=== PATIENT | male | born 1955 | race Caucasian/White ===

== ENCOUNTER 2019-05-13 05:04 | Inpatient (IN) | payer MEDICARE, OTHER ==
[2019-05-13] VITALS (13 sets, daily range): BP systolic 105–166; BP diastolic 41–77
[~2019-05-13] VITALS: Ht 176.5 cm; Wt 90.9 kg
[~2019-05-13 05:04] MED LIST: LIDOcaine 2% (20 mg/ml) 5ml cardiac syringe ONE; albumin (human) 25% 100 ML IV solution IV ONE; aminocaproic acid 250 MG/1 ML inj. ONE; calcium chloride 100 MG/1 ML inj IV ONE; heparin 1,000 units/ml 10ml inj ONE; heparin 10,000 units/1 ML INJ ONE; magnesium sulf 1 GM/2 ML ONE; methylPREDNISolone sod. succ. 500mg inj ONE; papaverine 30 mg/ml 2ml inj. ONE; phenylephrine 10mg/ml inj. ONE; potassium acetate 2 mEq/1ml inj. IV ONE; sodium bicarbonate (8.4%) 1 mEq/ml syringe ONE
[2019-05-13] MEDS ORDERED: LIDOcaine/PRILOcaine 5gm cream TP ONE (05:35)
[2019-05-13] MEDS ORDERED: diphenhydrAMINE 25mg capsule PO PRN ×2 (05:35→07:30)
[2019-05-13] MEDS ORDERED: LORazepam 0.5 MG tablet PO PRN (05:35)
[2019-05-13] MEDS ORDERED: FLO0.4C PO (05:42)
[2019-05-13] MEDS ORDERED: ASPI-611 PO (05:42)
[2019-05-13] MEDS ORDERED: OMEGA 3 PO (05:42)
[2019-05-13] MEDS ORDERED: MULT1CAP34 PO (05:42)
[2019-05-13] MEDS ORDERED: ATOR40TA PO (05:42)
[2019-05-13 05:43] LABS: BASOPHILS # (AUTO) 0.1 X10'3 (0-0.2); BASOPHILS % (AUTO) 1.4 % (0-1); EOSINOPHILS # (AUTO) 0.3 X10'3 (0-0.9); HEMATOCRIT 42.4 % (42.0-52.0); HEMOGLOBIN 14.7 g/dl (14.0-17.9); LYMPHOCYTES # (AUTO) 2.9 X10'3 (1.1-4.8); LYMPHOCYTES % (AUTO) 29.4 % (21-51); MEAN CORPUSCULAR HEMOGLOBIN 32.2 PG (27.0-31.0); MEAN CORPUSCULAR HGB CONC 34.7 g/dL (33.0-36.5); MEAN CORPUSCULAR VOLUME 92.8 FL (78-98); MEAN PLATELET VOLUME 9.3 FL (7.4-10.4); MONOCYTES # (AUTO) 1.2 X10'3 (0-0.9); MONOCYTES % (AUTO) 12.3 % (2-12); NEUTROPHILS # (AUTO) 5.3 X10'3 (1.8-7.7); NEUTROPHILS % (AUTO) 53.9 % (42-75); PLATELET COUNT 193 X10'3 (140-440); RED BLOOD COUNT 4.57 X10'6 (4.70-6.10); RED CELL DISTRIBUTION WIDTH 12.9 % (11.5-14.5); WHITE BLOOD COUNT 9.9 X10'3 (4.5-11.0)
[2019-05-13] MEDS: normal saline 1,000 ML IV SCH (05:46)
[2019-05-13 05:49] LABS: ALBUMIN 3.9 G/DL (3.4-5.0); ANION GAP 9 (8-16); BLOOD UREA NITROGEN 15 MG/DL (7-18); CHLORIDE 108 MMOL/L (99-107); CREATININE 1.07 MG/DL (0.60-1.10); GLUCOSE 111 MG/DL (70-104); POTASSIUM 4.1 MMOL/L (3.5-5.1); SODIUM 141 MMOL/L (135-145); TOTAL CARBON DIOXIDE 23.7 MMOL/L (24-32); eGFR 69 ML/MIN
[2019-05-13 05:52] LABS: PARTIAL THROMBOPLASTIN TIME 26 SECONDS (22-32)
[2019-05-13] MEDS ORDERED: verapamil 2.5 mg/ml inj IV ONE (06:05)
[2019-05-13] MEDS ORDERED: nitroGLYCERIN-Tridil 50MG/D5W 250 ML IV ONE (06:05)
[2019-05-13] MEDS ORDERED: midazolam 2 mg/2 ml injection ONE (06:05)
[2019-05-13] MEDS ORDERED: fentaNYL/PF 50MCG/1 ML 2ML syringe ONE (06:06)
[2019-05-13] MEDS ORDERED: heparin 1,000unit/ml 10ml vial 10 ML ONE (06:06)
[2019-05-13] MEDS ORDERED: LIDOcaine 1% (10mg/ml)w/preservative injection 20ml MDV ONE (06:06)
[2019-05-13] MEDS ORDERED: iohexol 350MG/ML 100ml bottle IV ONE (06:06)
[2019-05-13] MEDS ORDERED: HYDROmorphone 1 mg/ml syringe ONE (06:33)
[2019-05-13] MEDS ORDERED: insulin regular, human 100 UNIT in normal saline 100ml IV soln 100 ML IV SCH ×2 (07:29)
[2019-05-13] MEDS ORDERED: potassium Cl 20mEq/100mL bag 100 ML IV PRN (07:30)
[2019-05-13] MEDS ORDERED: MALTODEXTRIN/FRUCTOSE 0.68 KCAL/ML LIQUID 296ML BOTTLE PO ONE (07:30)
[2019-05-13] MEDS ORDERED: potassium Cl 20 mEq SR tablet PO PRN (07:30)
[2019-05-13] MEDS ORDERED: magnesium 2GM in 50ml NS 50 ML IV PRN (07:30)
[2019-05-13] MEDS ORDERED: MESSAGE TO NURSING PO ONE ×5 (07:30→10:00)
[2019-05-13] MEDS ORDERED: magnesium 4gm in 100ml NS 100 ML IV PRN (07:30)
[2019-05-13] MEDS ORDERED: cefazolin/dext.iso 2gm/50ml 50 ML IV ONE (07:30)
[2019-05-13] MEDS ORDERED: dextrose 50%-water 50ml dispensing syringe IV PRN (07:30)
[2019-05-13] MEDS ORDERED: HYDROcodone/acetaminophen 5mg/325mg tablet PO PRN ×3 (07:30→08:30)
[2019-05-13] MEDS ORDERED: ondansetron/PF 4mg/2ml inj IV PRN ×3 (07:30→08:30)
[2019-05-13] MEDS ORDERED: gabapentin 400mg capsule PO ONE (07:30)
[2019-05-13] MEDS ORDERED: insulin glargine (Lantus) pen - multi-dose SQ PRN (07:30)
[2019-05-13] MEDS ORDERED: vancomycin/NS 1 GM ADD-VANTAGE 250 ML IV ONE (07:30)
[2019-05-13] MEDS ORDERED: proCHLORperazine 10 MG/2 ml inj IV PRN ×2 (07:55→08:35)
[2019-05-13] MEDS ORDERED: OXAZEpam 15mg capsule PO PRN ×2 (07:55→08:35)
[2019-05-13] MEDS ORDERED: HYDROcodone/acetaminophen 10/325mg tab PO PRN ×2 (07:55→08:35)
[2019-05-13 09:04] LABS: MAGNESIUM 2.2 MG/DL (1.5-2.4)
[2019-05-13 09:14] LABS: HEMOGLOBIN A1C 6.5 % (4.5-6.2)
[2019-05-13 10:08] LABS: HEMATOCRIT 42.1 % (42.0-52.0); HEMOGLOBIN 14.5 g/dl (14.0-17.9); MEAN CORPUSCULAR HEMOGLOBIN 31.7 PG (27.0-31.0); MEAN CORPUSCULAR HGB CONC 34.3 g/dL (33.0-36.5); MEAN CORPUSCULAR VOLUME 92.2 FL (78-98); MEAN PLATELET VOLUME 9.4 FL (7.4-10.4); PLATELET COUNT 187 X10'3 (140-440); RED BLOOD COUNT 4.57 X10'6 (4.70-6.10); RED CELL DISTRIBUTION WIDTH 13.3 % (11.5-14.5); WHITE BLOOD COUNT 9.4 X10'3 (4.5-11.0)
[2019-05-13 10:14] LABS: PARTIAL THROMBOPLASTIN TIME 34 SECONDS (22-32)
[2019-05-13 10:20] LABS: ALBUMIN 3.6 G/DL (3.4-5.0); ANION GAP 10 (8-16); BLOOD UREA NITROGEN 13 MG/DL (7-18); BUN/CREATININE RATIO 12.5 (5.4-32.0); CALCIUM 8.6 MG/DL (8.5-10.1); CHLORIDE 108 MMOL/L (99-107); CHOL/HDL RATIO 2.8 (0.00-4.99); CHOLESTEROL 108 MG/DL (0-200); CREATININE 1.04 MG/DL (0.60-1.10); GLUCOSE 160 MG/DL (70-104); HDL CHOLESTEROL 38 MG/DL (35-60); LDL CHOLESTEROL 58 MG/DL (50-100); SODIUM 142 MMOL/L (135-145); TOTAL CARBON DIOXIDE 23.7 MMOL/L (24-32); TRIGLYCERIDES 112 MG/DL (20-135); eGFR 72 ML/MIN
[2019-05-13 14:31] LABS: ABG BASE EXCESS 0.2 mmol/L (-2.0-3.0); ABG HCO3 25.1 mmol/L (22.0-26.0); ABG OXYGEN SATURATION 92.6 % (95-98); ABG PCO2 (T) 41.7 mmHg (35.0-45.0); ABG PH (T) 7.397 (7.350-7.450); ABG PO2 (T) 63.5 mmHg (83-108); ALLEN'S TEST Positive; FCOHb 0.8 % (0.5-1.5); FMetHb 0.3 % (0.3-1.12); FO2Hb 91.6 % (94-100); TOTAL HEMOGLOBIN 14.4 G/dl (14.0-17.9)
--- NOTE | 2019-05-13 15:40 | NUR ---
RECEIVED PATIENT AND REPORT FROM SHORT STAY.PATIENT PLACED IN ROOM 308. PATIENT AWAKE ALERT AND ORIENTED. RT WRIST WITH VASC COMPRESSION BAND INTACT, RADIAL PULSE POSITIVE PER PALPATION, CER CHECK GOOD.REMOVED 2 ML OF AIR.NO C/O CALL LIGHT IN REACH. Addendum: 05/13/19 at 1853 by Liset Tierney RN Amended: Links added.
--- NOTE | 2019-05-13 18:34 | NUR ---
Patient in room MED 308. I have received report from Karen KUMAR and had the opportunity to ask questions and assume patient care.
[2019-05-13] MEDS: mupirocin 2% ointment 22GM NS SCH (20:00)
--- NOTE | 2019-05-13 20:00 | NUR ---
PATIENT HAS BEEN NOTED TO HAVE A HEART RATE LOW 43, ASYMPTOMATIC
--- NOTE | 2019-05-13 22:00 | NUR ---
PATIENT C/O HEADACHE AFTER RECEIVING NORCO 10/325 FOR 710 BACK PAIN, WILL SUGGEST TO DAY SHIFT RN TO USE ALTERNATIVE PAIN MEDICINE.
--- NOTE | 2019-05-14 00:40 | NUR ---
PATIENTS HEART RATE DROPPED TO 38, ASYMPTOMATIC, SLEEPING.
[2019-05-14 02:00] VITALS: BP 136/78
[2019-05-14 03:54] LABS: BASOPHILS # (AUTO) 0.1 X10'3 (0-0.2); BASOPHILS % (AUTO) 0.9 % (0-1); EOSINOPHILS # (AUTO) 0.3 X10'3 (0-0.9); HEMATOCRIT 40.2 % (42.0-52.0); HEMOGLOBIN 13.9 g/dl (14.0-17.9); LYMPHOCYTES # (AUTO) 1.9 X10'3 (1.1-4.8); LYMPHOCYTES % (AUTO) 19.5 % (21-51); MEAN CORPUSCULAR HEMOGLOBIN 31.9 PG (27.0-31.0); MEAN CORPUSCULAR HGB CONC 34.5 g/dL (33.0-36.5); MEAN CORPUSCULAR VOLUME 92.6 FL (78-98); MONOCYTES # (AUTO) 1.1 X10'3 (0-0.9); MONOCYTES % (AUTO) 11.6 % (2-12); NEUTROPHILS # (AUTO) 6.4 X10'3 (1.8-7.7); PLATELET COUNT 184 X10'3 (140-440); RED BLOOD COUNT 4.35 X10'6 (4.70-6.10); RED CELL DISTRIBUTION WIDTH 13.2 % (11.5-14.5); WHITE BLOOD COUNT 9.8 X10'3 (4.5-11.0)
[2019-05-14 04:06] LABS: ALANINE AMINOTRANSFERASE 27 U/L (12-78); ALBUMIN 3.5 G/DL (3.4-5.0); ALBUMIN/GLOBULIN RATIO 0.9 (1.1-1.5); ALKALINE PHOSPHATASE 106 IU/L (46-116); ANION GAP 10 (8-16); ASPARTATE AMINO TRANSFERASE 14 U/L (10-37); BILIRUBIN,TOTAL 0.4 MG/DL (0.1-1.0); BLOOD UREA NITROGEN 18 MG/DL (7-18); BUN/CREATININE RATIO 17.6 (5.4-32.0); CALCIUM 8.8 MG/DL (8.5-10.1); CHLORIDE 106 MMOL/L (99-107); CREATININE 1.02 MG/DL (0.60-1.10); GLUCOSE 114 MG/DL (70-104); POTASSIUM 4.6 MMOL/L (3.5-5.1); SODIUM 139 MMOL/L (135-145); TOTAL CARBON DIOXIDE 23.3 MMOL/L (24-32); TOTAL PROTEIN 7.3 G/DL (6.4-8.2); eGFR 73 ML/MIN
[2019-05-14 06:00] VITALS: BP 146/71
--- NOTE | 2019-05-14 06:58 | NUR ---
Patient in room MED 308. I have received report from JOSÉ Mosley and had the opportunity to ask questions and assume patient care.
[2019-05-14] MEDS ORDERED: magnesium citrate 296ml oral solution PO ONE (07:20)
[2019-05-14] MEDS: mupirocin 2% ointment 22GM NS SCH ×3 (08:00→21:46)
[2019-05-14] MEDS: aspirin 81mg tablet.DR PO SCH (08:19)
[2019-05-14] MEDS: acetaminophen 325mg tablet PO PRN ×4 (08:19→21:41)
[2019-05-14] MEDS: multivitamins, therapeutics tablet PO SCH (08:19)
[2019-05-14] MEDS: atorvastatin 20mg tablet PO SCH (08:20)
[2019-05-14] MEDS: tamsulosin 0.4mg capsule PO SCH (08:20)
[2019-05-14] MEDS: omega-3 acid ethyl esters 1GM capsule PO SCH (08:20)
[2019-05-14 11:00] VITALS: BP 113/96
[2019-05-14 15:00] VITALS: BP 143/65
[2019-05-14] MEDS ORDERED: ringers solution, lacted 1,000 ML IV ONE (16:07)
[2019-05-14 18:00] VITALS: BP 150/70
[2019-05-14] MEDS: metoprolol tartrate 12.5mg (1/2 tablet) PO SCH ×2 (20:00→20:57)
[2019-05-14] MEDS: normal saline 1,000 ML IV SCH ×2 (20:53→21:31)
[2019-05-14 22:00] VITALS: BP 158/79
[2019-05-15] VITALS (18 sets, daily range): BP systolic 112–156; BP diastolic 50–76
[2019-05-15 04:14] LABS: BASOPHILS # (AUTO) 0.1 X10'3 (0-0.2); BASOPHILS % (AUTO) 0.9 % (0-1); EOSINOPHILS # (AUTO) 0.3 X10'3 (0-0.9); EOSINOPHILS % (AUTO) 3.2 % (0-6); HEMATOCRIT 42.3 % (42.0-52.0); HEMOGLOBIN 14.6 g/dl (14.0-17.9); LYMPHOCYTES # (AUTO) 2.3 X10'3 (1.1-4.8); LYMPHOCYTES % (AUTO) 22.2 % (21-51); MEAN CORPUSCULAR HGB CONC 34.6 g/dL (33.0-36.5); MEAN CORPUSCULAR VOLUME 92.4 FL (78-98); MEAN PLATELET VOLUME 9.1 FL (7.4-10.4); MONOCYTES # (AUTO) 1.2 X10'3 (0-0.9); MONOCYTES % (AUTO) 11.5 % (2-12); NEUTROPHILS # (AUTO) 6.5 X10'3 (1.8-7.7); NEUTROPHILS % (AUTO) 62.2 % (42-75); PLATELET COUNT 185 X10'3 (140-440); RED BLOOD COUNT 4.57 X10'6 (4.70-6.10); RED CELL DISTRIBUTION WIDTH 13.4 % (11.5-14.5); WHITE BLOOD COUNT 10.5 X10'3 (4.5-11.0)
[2019-05-15 04:22] LABS: ALBUMIN 3.7 G/DL (3.4-5.0); ANION GAP 11 (8-16); BLOOD UREA NITROGEN 18 MG/DL (7-18); CALCIUM 8.8 MG/DL (8.5-10.1); CHLORIDE 105 MMOL/L (99-107); GLUCOSE 105 MG/DL (70-104); MAGNESIUM 2.3 MG/DL (1.5-2.4); SODIUM 139 MMOL/L (135-145); TOTAL CARBON DIOXIDE 22.8 MMOL/L (24-32); eGFR 75 ML/MIN
[2019-05-15] MEDS ORDERED: ROPIVAcaine 0.5% (5mg/ml) 30ml vial ONE (05:18)
[2019-05-15] MEDS ORDERED: cefazolin/dext.iso 2gm/50ml 50 ML IV ONE (05:30)
[2019-05-15] MEDS ORDERED: vancomycin/NS 1 GM ADD-VANTAGE 250 ML IV ONE (05:30)
[2019-05-15] MEDS ORDERED: MALTODEXTRIN/FRUCTOSE 0.68 KCAL/ML LIQUID 296ML BOTTLE PO ONE (05:30)
[2019-05-15] MEDS ORDERED: gabapentin 400mg capsule PO ONE (05:30)
[2019-05-15] MEDS ORDERED: famotidine 20mg tablet PO ONE (06:00)
[2019-05-15] MEDS ORDERED: LORazepam 2 mg/ml vial IV ONE (06:00)
--- NOTE | 2019-05-15 06:13 | NUR ---
Patient in room MED 308. I have received report from JOSÉ Yang and had the opportunity to ask questions and assume patient care.
[2019-05-15] MEDS ORDERED: papaverine 30 mg/ml 2ml inj. IA ONE (06:30)
[2019-05-15] MEDS ORDERED: heparin 10,000 units/1 ML INJ IR ONE (06:30)
--- NOTE | 2019-05-15 06:30 | NUR ---
Problems reprioritized. Patient report given, questions answered & plan of care reviewed with Abril Andujar.
[2019-05-15] MEDS ORDERED: SUFENTANIL CITRATE 50 MCG/ML 2ml ampule IV ONE ×2 (07:33→11:17)
[2019-05-15] MEDS ORDERED: midazolam 2 mg/2 ml injection ONE (07:34)
--- NOTE | 2019-05-15 07:40 | NUR ---
Pt left unit at 0740 with OR team, no noted distress, all questions answered. All belongings in the room were collected and will transferred to ICU once a bed is confirmed
[2019-05-15] MEDS: atorvastatin 20mg tablet PO SCH (08:00)
[2019-05-15] MEDS: omega-3 acid ethyl esters 1GM capsule PO SCH (08:00)
[2019-05-15] MEDS: tamsulosin 0.4mg capsule PO SCH (08:00)
[2019-05-15] MEDS: multivitamins, therapeutics tablet PO SCH (08:00)
[2019-05-15] MEDS: metoprolol tartrate 12.5mg (1/2 tablet) PO SCH (08:00)
[2019-05-15] MEDS: aspirin 81mg tablet.DR PO SCH (08:00)
--- NOTE | 2019-05-15 08:16 | NUR ---
Problems reprioritized. Patient report given, questions answered & plan of care reviewed with JOSÉ Hoffman.
[2019-05-15 08:41] LABS: ABG BASE EXCESS -1.3 mmol/L (-2.0-3.0); ABG HCO3 23.9 mmol/L (22.0-26.0); ABG OXYGEN SATURATION 97.7 % (95-98); ABG PCO2 42.1 mmHg (35.0-45.0); ABG PH 7.372 (7.350-7.450); ABG PO2 104.2 mmHg (60.0-100.0); CL (ABG) 104 mmol/L (99-107); FCOHb 0.9 % (0.5-1.5); FMetHb 0.2 % (0.3-1.12); FO2Hb 96.6 % (94-100); GLUCOSE (ABG) 145 mg/dl (70-104); IONIZED CA (ABG) 1.18 mmol/L (1.03-1.32); K (ABG) 3.9 mmol/L (3.3-5.1); NA (ABG) 138 mmol/L (135-145); TOTAL HEMOGLOBIN 13.9 G/dl (14.0-17.9)
[2019-05-15 09:35] LABS: ACT @ 1.70 U 336 SEC (193-297); ACT @ 2.84 U 472 SEC (260-420); BASELINE ACT 157 SEC (101-148); PATIENT WEIGHT 95.0k KG
[2019-05-15 09:55] LABS: ABG BASE EXCESS -1.5 mmol/L (-2.0-3.0); ABG OXYGEN SATURATION 99.4 % (95-98); ABG PCO2 37.6 mmHg (35.0-45.0); ABG PH 7.404 (7.350-7.450); ABG PO2 379.3 mmHg (60.0-100.0); CL (ABG) 102 mmol/L (99-107); FCOHb 0.3 % (0.5-1.5); FMetHb 0.3 % (0.3-1.12); FO2Hb 98.8 % (94-100); GLUCOSE (ABG) 105 mg/dl (70-104); IONIZED CA (ABG) 1.03 mmol/L (1.03-1.32); K (ABG) 5.3 mmol/L (3.3-5.1); NA (ABG) 134 mmol/L (135-145); TOTAL HEMOGLOBIN 10.7 G/dl (14.0-17.9)
[2019-05-15] MEDS ORDERED: ipratropium/albuterol 3ml nebule IH PRN (10:05)
[2019-05-15 10:10] LABS: ABG BASE EXCESS VENOUS -1.2 mmol/L; ABG PO2 VENOUS 50.7 mmHg; CL (ABG) 103 mmol/L (99-107); FCOHb VENOUS 0.1 %; FHHb VENOUS 14.8 %; FMetHb VENOUS 0.3 %; FO2Hb VENOUS 84.8 %; GLUCOSE (ABG) 102 mg/dl (70-104); IONIZED CA (ABG) 0.99 mmol/L (1.03-1.32); K (ABG) 5.2 mmol/L (3.3-5.1); NA (ABG) 138 mmol/L (135-145); TOTAL HEMOGLOBIN 10.4 G/dl (14.0-17.9)
[2019-05-15] MEDS ORDERED: rocuronium 10mg/ml inj IV ONE (10:41)
[2019-05-15] MEDS ORDERED: propofol inj 20 ML IV ONE (10:41)
[2019-05-15] MEDS ORDERED: LIDOcaine 2% (20mg/ml) 5ml vial ONE (10:41)
[2019-05-15 10:45] LABS: ABG BASE EXCESS -0.3 mmol/L (-2.0-3.0); ABG HCO3 23.8 mmol/L (22.0-26.0); ABG PCO2 36.7 mmHg (35.0-45.0); ABG PO2 353.4 mmHg (60.0-100.0); CL (ABG) 101 mmol/L (99-107); FCOHb 0.3 % (0.5-1.5); FMetHb 0.3 % (0.3-1.12); FO2Hb 98.4 % (94-100); GLUCOSE (ABG) 111 mg/dl (70-104); IONIZED CA (ABG) 1.35 mmol/L (1.03-1.32); K (ABG) 5.3 mmol/L (3.3-5.1); NA (ABG) 131 mmol/L (135-145); TOTAL HEMOGLOBIN 9.9 G/dl (14.0-17.9)
[2019-05-15 11:25] LABS: ABG BASE EXCESS -1.6 mmol/L (-2.0-3.0); ABG HCO3 21.9 mmol/L (22.0-26.0); ABG OXYGEN SATURATION 94.1 % (95-98); ABG PCO2 33.2 mmHg (35.0-45.0); ABG PH 7.438 (7.350-7.450); ABG PO2 69.5 mmHg (60.0-100.0); CL (ABG) 105 mmol/L (99-107); FCOHb 0.3 % (0.5-1.5); FMetHb 0.3 % (0.3-1.12); FO2Hb 93.5 % (94-100); GLUCOSE (ABG) 137 mg/dl (70-104); IONIZED CA (ABG) 1.17 mmol/L (1.03-1.32); K (ABG) 4.7 mmol/L (3.3-5.1); NA (ABG) 134 mmol/L (135-145); TOTAL HEMOGLOBIN 11.5 G/dl (14.0-17.9)
[2019-05-15] MEDS ORDERED: DOPamine 400mg/D5W 250ml 250 ML IV PRN (11:52)
[2019-05-15] MEDS ORDERED: sodium chloride 0.45% 1,000 ML IV SCH (11:52)
[2019-05-15] MEDS ORDERED: nitroGLYCERIN-Tridil 50MG/D5W 250 ML IV PRN (11:52)
[2019-05-15] MEDS ORDERED: niCARDipine-NS 40mg/200ml IVPB 200 ML IV PRN (11:52)
[2019-05-15] MEDS ORDERED: morphine 4 MG/ML inj SYRINge IV PRN (11:55)
[2019-05-15] MEDS ORDERED: magnesium 2GM in 50ml NS 50 ML IV PRN (11:55)
[2019-05-15] MEDS ORDERED: magnesium hydroxide 30ml (MOM) UD suspension PO PRN (11:55)
[2019-05-15] MEDS ORDERED: sodium phosphate inj. 15 MMOL in dextrose 5%-water 150 ML IV PRN (11:55)
[2019-05-15] MEDS ORDERED: magnesium 4gm in 100ml NS 100 ML IV PRN (11:55)
[2019-05-15] MEDS ORDERED: insulin regular, human inj. 100 UNITS in normal saline 100ml IV soln 100 ML IV SCH ×2 (11:55)
[2019-05-15] MEDS ORDERED: normal saline 250ml IV soln 250 ML IV PRN (11:55)
[2019-05-15] MEDS ORDERED: sodium phosphate inj. 30 MMOL in dextrose 5%-water 250 ML IV PRN (11:55)
[2019-05-15] MEDS ORDERED: albumin (Human) 5% 250ml 250 ML IV PRN (11:55)
[2019-05-15] MEDS ORDERED: potassium Cl 20 mEq SR tablet PO PRN (11:55)
[2019-05-15] MEDS ORDERED: pantoprazole 40 MG vial IV ONE (11:55)
[2019-05-15] MEDS ORDERED: dextrose 50%-water 50ml dispensing syringe IV PRN (11:55)
[2019-05-15] MEDS ORDERED: Neutra Phos packet PO PRN (11:55)
[2019-05-15] MEDS: insulin regular, human 100 UNIT in normal saline 100ml IV soln 100 ML IV SCH ×4 (12:00→20:59)
[2019-05-15 12:14] LABS: BASOPHILS # (AUTO) 0.1 X10'3 (0-0.2); BASOPHILS % (AUTO) 0.4 % (0-1); EOSINOPHILS # (AUTO) 0.1 X10'3 (0-0.9); EOSINOPHILS % (AUTO) 0.9 % (0-6); HEMATOCRIT 37.3 % (42.0-52.0); HEMOGLOBIN 12.7 g/dl (14.0-17.9); LYMPHOCYTES # (AUTO) 1.4 X10'3 (1.1-4.8); LYMPHOCYTES % (AUTO) 10.6 % (21-51); MEAN CORPUSCULAR HEMOGLOBIN 31.5 PG (27.0-31.0); MEAN CORPUSCULAR HGB CONC 34.1 g/dL (33.0-36.5); MEAN CORPUSCULAR VOLUME 92.4 FL (78-98); MEAN PLATELET VOLUME 8.9 FL (7.4-10.4); MONOCYTES # (AUTO) 0.8 X10'3 (0-0.9); MONOCYTES % (AUTO) 5.9 % (2-12); NEUTROPHILS # (AUTO) 11.2 X10'3 (1.8-7.7); NEUTROPHILS % (AUTO) 82.2 % (42-75); PLATELET COUNT 139 X10'3 (140-440); RED BLOOD COUNT 4.03 X10'6 (4.70-6.10); RED CELL DISTRIBUTION WIDTH 13.3 % (11.5-14.5); WHITE BLOOD COUNT 13.6 X10'3 (4.5-11.0)
[2019-05-15 12:19] LABS: PARTIAL THROMBOPLASTIN TIME 27 SECONDS (22-32)
[2019-05-15 12:21] LABS: ABG BASE EXCESS -1.5 mmol/L (-2.0-3.0); ABG OXYGEN SATURATION 95.8 % (95-98); ABG PCO2 (T) 38.1 mmHg (35.0-45.0); ABG PH (T) 7.398 (7.350-7.450); ABG PO2 (T) 79.7 mmHg (83-108); FCOHb 0.3 % (0.5-1.5); FLOW 40 L/min; FMetHb 0.2 % (0.3-1.12); FO2Hb 95.3 % (94-100); MINUTE VOLUME 9 L/min; PEEP 5 cm H2O; RESPIRATORY RATE 12 b/min; RESPIRATORY RATE (OBSERVED) 12 b/min; TIDAL VOLUME 700 mL
[2019-05-15 12:24] LABS: ALANINE AMINOTRANSFERASE 22 U/L (12-78); ALBUMIN 3.4 G/DL (3.4-5.0); ALBUMIN/GLOBULIN RATIO 1.3 (1.1-1.5); ALKALINE PHOSPHATASE 70 IU/L (46-116); ANION GAP 8 (8-16); ASPARTATE AMINO TRANSFERASE 36 U/L (10-37); BILIRUBIN,TOTAL 0.8 MG/DL (0.1-1.0); BLOOD UREA NITROGEN 16 MG/DL (7-18); BUN/CREATININE RATIO 17.4 (5.4-32.0); CALCIUM 8.3 MG/DL (8.5-10.1); CHLORIDE 105 MMOL/L (99-107); CREATININE 0.92 MG/DL (0.60-1.10); GLUCOSE 151 MG/DL (70-104); MAGNESIUM 3.9 MG/DL (1.5-2.4); PHOSPHORUS 1.8 MG/DL (2.3-4.5); POTASSIUM 4.4 MMOL/L (3.5-5.1); SODIUM 138 MMOL/L (135-145); eGFR 83 ML/MIN
[2019-05-15] MEDS ORDERED: glycopyrrolate 0.2mg/ml inj ONE (12:39)
[2019-05-15] MEDS ORDERED: epiNEPHrine 0.1mg/ml 10ml syringe ONE (12:39)
[2019-05-15] MEDS ORDERED: esmolol inj. 10 ML IV ONE (12:39)
[2019-05-15] MEDS ORDERED: phenylephrine 10mg/ml inj. ONE (12:39)
[2019-05-15] MEDS: insulin Lispro (HumaLOG) vial - multi-dose SQ SCH ×2 (13:00→16:37)
[2019-05-15] MEDS: potassium Cl 20mEq/100mL bag 100 ML IV PRN ×3 (13:37→18:57)
--- NOTE | 2019-05-15 13:38 | NUR ---
Nutrition consult: Pt s/p CABG today. Pt would benefit from nutrition therapy education prior to discharge once stable. Will continue to follow. Addendum: 05/15/19 at [address] Amended: Links added.
[2019-05-15 13:45] LABS: ACTIVATED CLOTTING TIME 132 SEC (101-148)
[2019-05-15] MEDS: gabapentin 300mg capsule PO SCH ×2 (13:59→20:12)
--- NOTE | 2019-05-15 14:00 | NUR ---
Received to room 2008, accompanied by MDs and surgical crew. Placed on ventilator, to diagnostic cardiac sonographer, arterial line and PA line pressure monitored. Chest tubes to suction at 20 cm. Barron cath to gravity drainage. Dressings are dry and intact. See assessment record. All vasoactive drugs are infusing via central line.
[2019-05-15] MEDS: morphine 4 MG/ML inj SYRINge IV PRN ×4 (14:52→23:22)
[2019-05-15] MEDS: ceFAZolin 1GM/D5W- ADD-VANTAGE 50 ML IV SCH ×2 (16:36→23:22)
[2019-05-15 17:30] LABS: BASOPHILS % (AUTO) 0.2 % (0-1); EOSINOPHILS % (AUTO) 0.1 % (0-6); HEMATOCRIT 36.7 % (42.0-52.0); HEMOGLOBIN 12.7 g/dl (14.0-17.9); LYMPHOCYTES # (AUTO) 0.7 X10'3 (1.1-4.8); LYMPHOCYTES % (AUTO) 5.3 % (21-51); MEAN CORPUSCULAR HEMOGLOBIN 31.8 PG (27.0-31.0); MEAN CORPUSCULAR HGB CONC 34.5 g/dL (33.0-36.5); MONOCYTES # (AUTO) 0.5 X10'3 (0-0.9); MONOCYTES % (AUTO) 3.9 % (2-12); NEUTROPHILS # (AUTO) 12.6 X10'3 (1.8-7.7); NEUTROPHILS % (AUTO) 90.5 % (42-75); PLATELET COUNT 139 X10'3 (140-440); RED BLOOD COUNT 3.99 X10'6 (4.70-6.10); RED CELL DISTRIBUTION WIDTH 13.4 % (11.5-14.5)
[2019-05-15 17:36] LABS: ALBUMIN 3.8 G/DL (3.4-5.0); ANION GAP 7 (8-16); BLOOD UREA NITROGEN 17 MG/DL (7-18); BUN/CREATININE RATIO 16.8 (5.4-32.0); CALCIUM 8.1 MG/DL (8.5-10.1); CHLORIDE 108 MMOL/L (99-107); CREATININE 1.01 MG/DL (0.60-1.10); GLUCOSE 183 MG/DL (70-104); MAGNESIUM 2.7 MG/DL (1.5-2.4); POTASSIUM 4.3 MMOL/L (3.5-5.1); SODIUM 140 MMOL/L (135-145); TOTAL CARBON DIOXIDE 24.9 MMOL/L (24-32); eGFR 74 ML/MIN
--- NOTE | 2019-05-15 18:16 | NUR ---
Problems reprioritized. Patient report given, questions answered & plan of care reviewed with ONCOMING SHIFT.
--- NOTE | 2019-05-15 18:32 | NUR ---
1830..Patient in room CICU 2007. I have received report from Radha KUMAR and had the opportunity to ask questions and assume patient care.
[2019-05-15] MEDS: docusate sod 100mg capsule PO SCH (20:00)
[2019-05-15] MEDS: mupirocin 2% nasal ointment 1gm UD NS SCH (20:12)
[2019-05-15] MEDS: vancomycin/NS 1 GM ADD-VANTAGE 250 ML IV SCH (20:12)
--- NOTE | 2019-05-15 21:12 | NUR ---
1999..Assessment as noted, weaning vent as tolerated, medicated with morphine for complaints of incisional pain, with good effect.
[2019-05-16] VITALS (24 sets, daily range): BP systolic 97–157; BP diastolic 53–92
[2019-05-16 01:20] LABS: ABG BASE EXCESS -3.8 mmol/L (-2.0-3.0); ABG HCO3 19.1 mmol/L (22.0-26.0); ABG OXYGEN SATURATION 92.5 % (95-98); ABG PCO2 (T) 29.8 mmHg (35.0-45.0); ABG PH (T) 7.427 (7.350-7.450); ABG PO2 (T) 65.4 mmHg (83-108); FCOHb 0.4 % (0.5-1.5); FMetHb 0.1 % (0.3-1.12); MINUTE VOLUME 13 L/min; PATIENT TEMPERATURE 37.8; PEEP 5 cm H2O; RESPIRATORY RATE (OBSERVED) 14 b/min; TOTAL HEMOGLOBIN 13.1 G/dl (14.0-17.9)
[2019-05-16] MEDS: morphine 4 MG/ML inj SYRINge IV PRN ×3 (01:34→08:33)
--- NOTE | 2019-05-16 01:40 | NUR ---
0000..Placed on spontaneous, resp 12-20, tolerating well, no other changes noted.
--- NOTE | 2019-05-16 01:41 | NUR ---
0125..Passed weaning parameters, extubated to nasal cannula 6l, no wheezing or stridor noted.
--- NOTE | 2019-05-16 01:42 | NUR ---
0130..Complaining of incisional pain, 8\10, medicated with morphine, as per orders, with good effect, no other changes noted.
[2019-05-16] MEDS: HYDROcodone/acetaminophen 10/325mg tab PO PRN ×4 (02:13→19:22)
[2019-05-16 02:46] LABS: BASOPHILS % (AUTO) 0.2 % (0-1); EOSINOPHILS % (AUTO) 0 % (0-6); HEMATOCRIT 35.8 % (42.0-52.0); HEMOGLOBIN 12.1 g/dl (14.0-17.9); LYMPHOCYTES # (AUTO) 0.9 X10'3 (1.1-4.8); LYMPHOCYTES % (AUTO) 5.7 % (21-51); MEAN CORPUSCULAR HEMOGLOBIN 31.5 PG (27.0-31.0); MEAN CORPUSCULAR HGB CONC 33.9 g/dL (33.0-36.5); MEAN CORPUSCULAR VOLUME 92.8 FL (78-98); MEAN PLATELET VOLUME 9.7 FL (7.4-10.4); MONOCYTES # (AUTO) 0.8 X10'3 (0-0.9); MONOCYTES % (AUTO) 5.1 % (2-12); NEUTROPHILS # (AUTO) 14.3 X10'3 (1.8-7.7); PLATELET COUNT 141 X10'3 (140-440); RED BLOOD COUNT 3.85 X10'6 (4.70-6.10); RED CELL DISTRIBUTION WIDTH 13.6 % (11.5-14.5); WHITE BLOOD COUNT 16.1 X10'3 (4.5-11.0)
[2019-05-16 02:57] LABS: PARTIAL THROMBOPLASTIN TIME 25 SECONDS (22-32)
[2019-05-16 03:14] LABS: ALANINE AMINOTRANSFERASE 30 U/L (12-78); ALBUMIN 3.6 G/DL (3.4-5.0); ALBUMIN/GLOBULIN RATIO 1.2 (1.1-1.5); ALKALINE PHOSPHATASE 69 IU/L (46-116); ANION GAP 9 (8-16); ASPARTATE AMINO TRANSFERASE 50 U/L (10-37); BILIRUBIN,TOTAL 0.7 MG/DL (0.1-1.0); BLOOD UREA NITROGEN 18 MG/DL (7-18); BUN/CREATININE RATIO 16.8 (5.4-32.0); CALCIUM 8.1 MG/DL (8.5-10.1); CHLORIDE 109 MMOL/L (99-107); CREATININE 1.07 MG/DL (0.60-1.10); GLUCOSE 118 MG/DL (70-104); MAGNESIUM 2.4 MG/DL (1.5-2.4); PHOSPHORUS 3.3 MG/DL (2.3-4.5); POTASSIUM 4.1 MMOL/L (3.5-5.1); SODIUM 141 MMOL/L (135-145); TOTAL CARBON DIOXIDE 22.7 MMOL/L (24-32); TOTAL PROTEIN 6.7 G/DL (6.4-8.2); eGFR 69 ML/MIN
--- NOTE | 2019-05-16 03:34 | NUR ---
0330..Continues to complain of incisional pain, even after norco given, morphine 4mg given at this time for pain 9\10.
[2019-05-16] MEDS: potassium Cl 20mEq/100mL bag 100 ML IV PRN ×2 (03:43→18:00)
--- NOTE | 2019-05-16 05:21 | NUR ---
0415..Appears more comfortable, no other changes noted.
--- NOTE | 2019-05-16 06:13 | NUR ---
0610..Problems reprioritized. Patient report given, questions answered & plan of care reviewed with Chelsey KUMAR.
[2019-05-16] MEDS: multivitamins, therapeutics tablet PO SCH (07:52)
[2019-05-16] MEDS: gabapentin 300mg capsule PO SCH ×3 (07:52→19:55)
[2019-05-16] MEDS: atorvastatin 10mg tablet PO SCH (07:53)
[2019-05-16] MEDS: docusate sod 100mg capsule PO SCH ×2 (07:53→19:56)
[2019-05-16] MEDS: tamsulosin 0.4mg capsule PO SCH (07:53)
[2019-05-16] MEDS: ceFAZolin 1GM/D5W- ADD-VANTAGE 50 ML IV SCH ×3 (07:54→23:56)
[2019-05-16] MEDS: metoprolol tartrate 12.5mg (1/2 tablet) PO SCH ×2 (07:54→19:55)
[2019-05-16] MEDS: vancomycin/NS 1 GM ADD-VANTAGE 250 ML IV SCH ×2 (07:54→19:55)
[2019-05-16] MEDS ORDERED: aspirin 325mg tablet, delayed-release (Ecotrin) PO SCH (08:00)
[2019-05-16] MEDS: ketorolac tromethamine 15mg/ml inj. IV PRN ×2 (08:34→22:11)
[2019-05-16] MEDS: insulin Lispro (HumaLOG) vial - multi-dose SQ SCH ×4 (09:00→19:07)
[2019-05-16] MEDS: mupirocin 2% nasal ointment 1gm UD NS SCH ×2 (09:29→19:55)
[2019-05-16] MEDS ORDERED: glucagon, human recombinant 1mg kit SUBCUT PRN (18:55)
[2019-05-16] MEDS ORDERED: dextrose ORAL solution 15 GM/59 ML bottle PO PRN ×2 (18:55)
[2019-05-16] MEDS: insulin glargine (Lantus) pen - multi-dose SQ SCH (21:14)
[2019-05-17] VITALS (18 sets, daily range): BP systolic 95–140; BP diastolic 54–80
[2019-05-17 03:10] LABS: BASOPHILS # (AUTO) 0.1 X10'3 (0-0.2); BASOPHILS % (AUTO) 0.2 % (0-1); EOSINOPHILS % (AUTO) 0 % (0-6); HEMATOCRIT 30.9 % (42.0-52.0); HEMOGLOBIN 10.5 g/dl (14.0-17.9); LYMPHOCYTES # (AUTO) 1.2 X10'3 (1.1-4.8); LYMPHOCYTES % (AUTO) 5.8 % (21-51); MEAN CORPUSCULAR HGB CONC 33.9 g/dL (33.0-36.5); MEAN CORPUSCULAR VOLUME 94.3 FL (78-98); MONOCYTES # (AUTO) 2.2 X10'3 (0-0.9); MONOCYTES % (AUTO) 10.3 % (2-12); NEUTROPHILS # (AUTO) 17.8 X10'3 (1.8-7.7); NEUTROPHILS % (AUTO) 83.7 % (42-75); PLATELET COUNT 121 X10'3 (140-440); RED BLOOD COUNT 3.28 X10'6 (4.70-6.10); RED CELL DISTRIBUTION WIDTH 13.9 % (11.5-14.5); WHITE BLOOD COUNT 21.2 X10'3 (4.5-11.0)
[2019-05-17 03:19] LABS: ALBUMIN 3.5 G/DL (3.4-5.0); ANION GAP 3 (8-16); BLOOD UREA NITROGEN 34 MG/DL (7-18); BUN/CREATININE RATIO 28.3 (5.4-32.0); CALCIUM 8.3 MG/DL (8.5-10.1); CHLORIDE 103 MMOL/L (99-107); GLUCOSE 154 MG/DL (70-104); MAGNESIUM 2.7 MG/DL (1.5-2.4); PHOSPHORUS 3.1 MG/DL (2.3-4.5); POTASSIUM 5.5 MMOL/L (3.5-5.1); SODIUM 134 MMOL/L (135-145); TOTAL CARBON DIOXIDE 27.8 MMOL/L (24-32); eGFR 61 ML/MIN
[2019-05-17 03:49] LABS: TOTAL CELLS COUNTED 100
[2019-05-17 03:50] LABS: PLATELET ESTIMATE DECREASED
--- NOTE | 2019-05-17 06:56 | NUR ---
Dr. Vargas informed regarding pt's potassium level of 5.5. Per Dr. Vargas, don't give pt. any more potassium and no further intervention.
[2019-05-17] MEDS ORDERED: potassium Cl 20 mEq SR tablet PO PRN (07:00)
[2019-05-17] MEDS ORDERED: magnesium 4gm in 100ml NS 100 ML IV PRN (07:00)
[2019-05-17] MEDS ORDERED: magnesium 2GM in 50ml NS 50 ML IV PRN (07:00)
[2019-05-17] MEDS ORDERED: potassium Cl 20mEq/100mL bag 100 ML IV PRN (07:00)
[2019-05-17] MEDS: magnesium Cl slow-release 64mg tablet PO SCH ×2 (07:58→20:00)
[2019-05-17] MEDS ORDERED: potassium Cl 20 mEq SR tablet PO SCH (08:00)
[2019-05-17] MEDS: gabapentin 300mg capsule PO SCH (08:12)
[2019-05-17] MEDS: HYDROcodone/acetaminophen 10/325mg tab PO PRN ×4 (08:12→13:35)
[2019-05-17] MEDS: tamsulosin 0.4mg capsule PO SCH (08:12)
[2019-05-17] MEDS: aspirin 81mg tab.chew PO SCH (08:13)
[2019-05-17] MEDS: atorvastatin 10mg tablet PO SCH (08:13)
[2019-05-17] MEDS: multivitamins, therapeutics tablet PO SCH (08:14)
[2019-05-17] MEDS: pantoprazole 40mg Tablet.DR PO SCH (08:14)
[2019-05-17] MEDS: metoprolol tartrate 12.5mg (1/2 tablet) PO SCH ×2 (08:14→20:00)
[2019-05-17] MEDS: docusate sod 100mg capsule PO SCH ×2 (08:15→21:01)
[2019-05-17] MEDS: insulin Lispro (HumaLOG) vial - multi-dose SQ SCH ×3 (09:15→18:51)
[2019-05-17] MEDS: sennosides/docusate sodium tablet PO SCH ×2 (11:06→21:00)
--- NOTE | 2019-05-17 12:10 | NUR ---
Initial: patient is s/p CABG on 05/15. He has a great appetite, eating 75-100% of meals and able to meet needs for wound healing of chest surgical wound. Pt needs written heart healthy and post cardiac surgery education with verbal review prior to discharge once stable. Will continue to follow. Recommend: 1. continue renal, heart healthy, carb controlled 2. continue routine bowel care 3. provide written and verbal education re: heart healthy and post CABG 4. weight per rx Addendum: 05/17/19 at [address] Amended: Links added.
--- NOTE | 2019-05-17 14:09 | NUR ---
Dr. Vargas informed regarding ST elevations in EKG and says most likely due to inflammation after review.Dr. Vargas informed regarding elevated serum Magnesium and potassium. No interventions per provider unless ectopy, abnormal EKG changes noted.
--- NOTE | 2019-05-17 14:21 | NUR ---
Patient coming to MED RM 316. I have received report from JOSÉ Simms and had the opportunity to ask questions and assume patient care.
[2019-05-17] MEDS: acetaminophen 325mg tablet PO PRN ×2 (16:35→22:42)
--- NOTE | 2019-05-17 18:16 | NUR ---
Problems reprioritized. Patient report given, questions answered & plan of care reviewed with JOSÉ Urban.
--- NOTE | 2019-05-17 18:38 | NUR ---
I have reviewed and agree with all interventions, assessments performed and documented by JOSÉ Garcia.
[2019-05-17] MEDS: insulin glargine (Lantus) pen - multi-dose SQ SCH (21:12)
[2019-05-18] MEDS: HYDROcodone/acetaminophen 10/325mg tab PO PRN ×3 (00:02→20:18)
[2019-05-18 02:00] VITALS: BP 115/48
[2019-05-18 05:23] LABS: BASOPHILS % (AUTO) 0.1 % (0-1); EOSINOPHILS % (AUTO) 0.2 % (0-6); HEMATOCRIT 30.4 % (42.0-52.0); HEMOGLOBIN 10.3 g/dl (14.0-17.9); LYMPHOCYTES # (AUTO) 2.2 X10'3 (1.1-4.8); LYMPHOCYTES % (AUTO) 15.1 % (21-51); MEAN CORPUSCULAR HEMOGLOBIN 31.8 PG (27.0-31.0); MEAN CORPUSCULAR HGB CONC 33.9 g/dL (33.0-36.5); MEAN CORPUSCULAR VOLUME 93.8 FL (78-98); MEAN PLATELET VOLUME 9.6 FL (7.4-10.4); MONOCYTES % (AUTO) 13.6 % (2-12); NEUTROPHILS # (AUTO) 10.4 X10'3 (1.8-7.7); PLATELET COUNT 120 X10'3 (140-440); RED BLOOD COUNT 3.24 X10'6 (4.70-6.10); RED CELL DISTRIBUTION WIDTH 13.7 % (11.5-14.5); WHITE BLOOD COUNT 14.6 X10'3 (4.5-11.0)
[2019-05-18 05:41] LABS: ALBUMIN 3.2 G/DL (3.4-5.0); ANION GAP 6 (8-16); BLOOD UREA NITROGEN 29 MG/DL (7-18); BUN/CREATININE RATIO 28.7 (5.4-32.0); CALCIUM 8.4 MG/DL (8.5-10.1); CHLORIDE 105 MMOL/L (99-107); CREATININE 1.01 MG/DL (0.60-1.10); GLUCOSE 106 MG/DL (70-104); POTASSIUM 4.6 MMOL/L (3.5-5.1); SODIUM 138 MMOL/L (135-145); TOTAL CARBON DIOXIDE 27.5 MMOL/L (24-32); eGFR 74 ML/MIN
[2019-05-18 06:00] VITALS: BP 132/63
--- NOTE | 2019-05-18 06:10 | NUR ---
Problems reprioritized. Patient report given,Dianelys KUMAR questions answered & plan of care reviewed with . Bedside report completed.
--- NOTE | 2019-05-18 06:14 | NUR ---
Patient in room MED 316. I have received report from JOSÉ Urban and had the opportunity to ask questions and assume patient care.
[2019-05-18 06:57] LABS: MAGNESIUM 2.5 MG/DL (1.5-2.4)
[2019-05-18] MEDS: pantoprazole 40mg Tablet.DR PO SCH (07:24)
[2019-05-18] MEDS: metoprolol tartrate 12.5mg (1/2 tablet) PO SCH ×2 (07:24→20:17)
[2019-05-18] MEDS: aspirin 81mg tab.chew PO SCH (07:25)
[2019-05-18] MEDS: sennosides/docusate sodium tablet PO SCH ×2 (07:26→20:16)
[2019-05-18] MEDS: acetaminophen 325mg tablet PO PRN ×2 (07:26→22:45)
[2019-05-18] MEDS: atorvastatin 10mg tablet PO SCH (07:26)
[2019-05-18] MEDS: tamsulosin 0.4mg capsule PO SCH (07:26)
[2019-05-18] MEDS: docusate sod 100mg capsule PO SCH (07:26)
[2019-05-18] MEDS: multivitamins, therapeutics tablet PO SCH (07:26)
[2019-05-18] MEDS: magnesium Cl slow-release 64mg tablet PO SCH ×2 (07:34→20:00)
[2019-05-18] MEDS ORDERED: bisacodyl 10mg suppository rectal RC STA (08:03)
[2019-05-18] MEDS: insulin Lispro (HumaLOG) vial - multi-dose SQ SCH (08:40)
[2019-05-18 11:00] VITALS: BP 114/54
--- NOTE | 2019-05-18 12:49 | NUR ---
pt. glucose level before lunch was 62 and he also told the nurse he was feeling a bit nauseas right before his glucose check. pt. had just been dropped to a level one at breakfast time. will hold insulin until pt. meets protocol again. orange juice was also given to the pt. with his lunch tray.
--- NOTE | 2019-05-18 13:32 | NUR ---
F/u: Pt seen at bedside provided with written and verbal heart healthy and protein s/p cardiac surgery educations. Pt endorses a good appetite which is evident with documented 75-100% PO intake however reports not getting full after meals. Pt agrees to cottage cheese QD with lunch and [place] yogurt QD at dinner. LBM 05/14. Pt receiving routine Senna-S and Colace with Reglan PRN not yet given. Pt received Dulcolax suppository today and to receive Mag-Citrate if not successful per MD notes. Pt agrees to power pudding with dinner tonight. All food preferences d/w dietary. RD contact information provided. Will continue to follow. Addendum: 05/18/19 at [address] Amended: Links added.
[2019-05-18 15:00] VITALS: BP 121/63
--- NOTE | 2019-05-18 18:11 | NUR ---
Patient in room MED 316. I have received report from Dianelys KUMAR and had the opportunity to ask questions and assume patient care. Bedside report completed. no distress noted.
--- NOTE | 2019-05-18 18:14 | NUR ---
Problems reprioritized. Patient report given, questions answered & plan of care reviewed with JOSÉ Urban.
[2019-05-18 18:30] VITALS: BP 123/66
[2019-05-18] MEDS: insulin glargine (Lantus) pen - multi-dose SQ SCH (20:21)
[2019-05-18 22:00] VITALS: BP 120/67
[2019-05-19] VITALS (22 sets, daily range): BP systolic 100–137; BP diastolic 42–79
[2019-05-19 03:22] LABS: BASOPHILS # (AUTO) 0.1 X10'3 (0-0.2); BASOPHILS % (AUTO) 0.5 % (0-1); EOSINOPHILS # (AUTO) 0.3 X10'3 (0-0.9); EOSINOPHILS % (AUTO) 2.1 % (0-6); HEMATOCRIT 35.2 % (42.0-52.0); HEMOGLOBIN 11.8 g/dl (14.0-17.9); LYMPHOCYTES # (AUTO) 3.1 X10'3 (1.1-4.8); LYMPHOCYTES % (AUTO) 24.3 % (21-51); MEAN CORPUSCULAR HEMOGLOBIN 31.8 PG (27.0-31.0); MEAN CORPUSCULAR HGB CONC 33.7 g/dL (33.0-36.5); MEAN CORPUSCULAR VOLUME 94.3 FL (78-98); MEAN PLATELET VOLUME 9.3 FL (7.4-10.4); MONOCYTES # (AUTO) 1.5 X10'3 (0-0.9); MONOCYTES % (AUTO) 12.1 % (2-12); NEUTROPHILS # (AUTO) 7.7 X10'3 (1.8-7.7); PLATELET COUNT 158 X10'3 (140-440); RED BLOOD COUNT 3.73 X10'6 (4.70-6.10); RED CELL DISTRIBUTION WIDTH 13.5 % (11.5-14.5); WHITE BLOOD COUNT 12.6 X10'3 (4.5-11.0)
[2019-05-19 03:31] LABS: ALBUMIN 3.4 G/DL (3.4-5.0); ANION GAP 8 (8-16); BLOOD UREA NITROGEN 27 MG/DL (7-18); BUN/CREATININE RATIO 28.1 (5.4-32.0); CALCIUM 8.7 MG/DL (8.5-10.1); CHLORIDE 104 MMOL/L (99-107); CREATININE 0.96 MG/DL (0.60-1.10); GLUCOSE 86 MG/DL (70-104); POTASSIUM 4.5 MMOL/L (3.5-5.1); SODIUM 140 MMOL/L (135-145); eGFR 79 ML/MIN
--- NOTE | 2019-05-19 06:15 | NUR ---
Patient in room MED 316. I have received report from JOSÉ Serna and had the opportunity to ask questions and assume patient care.
--- NOTE | 2019-05-19 06:35 | NUR ---
Problems reprioritized. Patient report given,Marta KUMAR questions answered & plan of care reviewed with .
[2019-05-19] MEDS: aspirin 81mg tab.chew PO SCH (08:07)
[2019-05-19] MEDS: pantoprazole 40mg Tablet.DR PO SCH (08:07)
[2019-05-19] MEDS: atorvastatin 10mg tablet PO SCH (08:07)
[2019-05-19] MEDS: tamsulosin 0.4mg capsule PO SCH (08:07)
[2019-05-19] MEDS: metoprolol tartrate 12.5mg (1/2 tablet) PO SCH ×2 (08:10→21:18)
[2019-05-19] MEDS: magnesium Cl slow-release 64mg tablet PO SCH ×2 (08:11→21:17)
[2019-05-19] MEDS: multivitamins, therapeutics tablet PO SCH (08:11)
[2019-05-19] MEDS: sennosides/docusate sodium tablet PO SCH ×2 (08:12→20:00)
[2019-05-19] MEDS ORDERED: magnesium citrate 296ml oral solution PO ONE (09:55)
--- NOTE | 2019-05-19 10:09 | NUR ---
Patient left the floor with xray staff. Patient stable.
--- NOTE | 2019-05-19 10:13 | NUR ---
Received call from tele office staff, Chantal, reports patient went into a-flutter, a-fib as he was leaving the floor. RYAN Martínez and Dr. Vargas made aware of this. I am unable to leave the floor at this time and the staff in xray reports that patient is not in distress and not symptomatic.
[2019-05-19] MEDS ORDERED: amiodarone 150mg/dext, iso-os 100 ML IV ONE (10:15)
--- NOTE | 2019-05-19 10:15 | NUR ---
patient left the floor with xray staff, pt left alert and oriented and in stable condition.
--- NOTE | 2019-05-19 10:15 | NUR ---
Patient arrived back to the floor in w/c, Patient alert and oriented denies any symptoms of SOB, patient put back in bed and hooked to bedside monitor. Verified heart rhythm. RYAN Martínez ordered Amiodarone for Rate and rhythm.
--- NOTE | 2019-05-19 10:30 | NUR ---
Patient arrived back to the floor via w/c. Patient stable and back in bed
[2019-05-19] MEDS: amiodarone/D5 360MG/200ML BAG 200 ML IV SCH ×2 (12:36→17:54)
--- NOTE | 2019-05-19 12:44 | NUR ---
Patient had gone into A-fib, A-flutter this am Leonardo Shah had given orders for Amiodarone protocol. Patient concerted to Sinus rhythm within an hour. Strips in chart show this. I was told by charge nurse, JOSÉ Morgan that the doctor said that if he coverts only do the bolus. The patient has since gone into A-fib again with HR of 140s to 150s. I went and got the maintenance dose and have begun infusion per orders. Cathy contacted RYAN Martínez to let him know what is going on. He wants pt to have Magnesium replacement since patient is in A-fib now and attempt to increase magnesium level. It is currently at 2.0.
[2019-05-19] MEDS ORDERED: potassium CL 10mEq/100ml bag 100 ML IV PRN (12:45)
[2019-05-19] MEDS ORDERED: magnesium 2GM in 50ml NS 50 ML IV PRN (12:45)
[2019-05-19] MEDS ORDERED: magnesium Cl slow-release 64mg tablet PO PRN (12:45)
[2019-05-19] MEDS ORDERED: potassium Cl 20 mEq SR tablet PO PRN ×2 (12:45)
[2019-05-19] MEDS ORDERED: magnesium 4gm in 100ml NS 100 ML IV PRN (12:45)
--- NOTE | 2019-05-19 13:38 | NUR ---
Patient had a large BM prior to giving him the ordered dose of mag-citrate. I non-administered this medication when the patient told me that he had the BM and did not wish to take the mag-citrate.
[2019-05-19] MEDS: acetaminophen 325mg tablet PO PRN ×2 (15:29→21:27)
--- NOTE | 2019-05-19 18:00 | NUR ---
Patient in room MED 316. I have received report from Marta KUMAR and had the opportunity to ask questions and assume patient care.
--- NOTE | 2019-05-19 18:15 | NUR ---
Problems reprioritized. Patient report given, questions answered & plan of care reviewed with JOSÉ Mosley.
[2019-05-19] MEDS: insulin glargine (Lantus) pen - multi-dose SQ SCH (21:00)
[2019-05-20 02:00] VITALS: BP 120/75
[2019-05-20] MEDS: acetaminophen 325mg tablet PO PRN ×4 (02:42→20:02)
[2019-05-20] MEDS: amiodarone/D5 360MG/200ML BAG 200 ML IV SCH ×2 (02:43→04:26)
[2019-05-20 05:13] LABS: BASOPHILS % (AUTO) 0.4 % (0-1); EOSINOPHILS # (AUTO) 0.3 X10'3 (0-0.9); EOSINOPHILS % (AUTO) 2.8 % (0-6); HEMATOCRIT 34.8 % (42.0-52.0); HEMOGLOBIN 11.8 g/dl (14.0-17.9); LYMPHOCYTES # (AUTO) 2.6 X10'3 (1.1-4.8); LYMPHOCYTES % (AUTO) 20.9 % (21-51); MEAN CORPUSCULAR HEMOGLOBIN 31.6 PG (27.0-31.0); MEAN CORPUSCULAR HGB CONC 33.9 g/dL (33.0-36.5); MEAN CORPUSCULAR VOLUME 93.3 FL (78-98); MEAN PLATELET VOLUME 9.2 FL (7.4-10.4); MONOCYTES # (AUTO) 1.5 X10'3 (0-0.9); MONOCYTES % (AUTO) 11.9 % (2-12); NEUTROPHILS # (AUTO) 7.9 X10'3 (1.8-7.7); PLATELET COUNT 193 X10'3 (140-440); RED BLOOD COUNT 3.73 X10'6 (4.70-6.10); RED CELL DISTRIBUTION WIDTH 13.5 % (11.5-14.5); WHITE BLOOD COUNT 12.4 X10'3 (4.5-11.0)
[2019-05-20 05:20] LABS: ALBUMIN 3.1 G/DL (3.4-5.0); ANION GAP 9 (8-16); BLOOD UREA NITROGEN 19 MG/DL (7-18); BUN/CREATININE RATIO 20.9 (5.4-32.0); CHLORIDE 104 MMOL/L (99-107); CREATININE 0.91 MG/DL (0.60-1.10); GLUCOSE 101 MG/DL (70-104); POTASSIUM 4.2 MMOL/L (3.5-5.1); SODIUM 140 MMOL/L (135-145); TOTAL CARBON DIOXIDE 26.8 MMOL/L (24-32); eGFR 84 ML/MIN
--- NOTE | 2019-05-20 06:00 | NUR ---
Problems reprioritized. Patient report given, questions answered & plan of care reviewed with Makenzie KUMAR .
--- NOTE | 2019-05-20 06:28 | NUR ---
Patient in room MED 316. I have received report from Melany KUMAR and had the opportunity to ask questions and assume patient care.
[2019-05-20 06:30] VITALS: BP 131/67
[2019-05-20] MEDS: sennosides/docusate sodium tablet PO SCH ×3 (08:00→20:02)
[2019-05-20] MEDS: multivitamins, therapeutics tablet PO SCH (08:59)
[2019-05-20] MEDS: atorvastatin 10mg tablet PO SCH (08:59)
[2019-05-20] MEDS: aspirin 81mg tab.chew PO SCH (08:59)
[2019-05-20] MEDS: magnesium Cl slow-release 64mg tablet PO SCH ×2 (08:59→20:02)
[2019-05-20] MEDS: amiodarone 200mg tablet PO SCH ×2 (08:59→18:11)
[2019-05-20] MEDS: tamsulosin 0.4mg capsule PO SCH (08:59)
[2019-05-20] MEDS: metoprolol tartrate 12.5mg (1/2 tablet) PO SCH ×2 (09:00→18:13)
[2019-05-20] MEDS ORDERED: potassium CL 10mEq/100ml bag 100 ML IV PRN (09:00)
[2019-05-20] MEDS ORDERED: magnesium 2GM in 50ml NS 50 ML IV PRN (09:00)
[2019-05-20] MEDS ORDERED: potassium Cl 20 mEq SR tablet PO PRN (09:00)
[2019-05-20] MEDS ORDERED: potassium Cl 20mEq/100mL bag 100 ML IV PRN (09:00)
[2019-05-20] MEDS: pantoprazole 40mg Tablet.DR PO SCH (09:11)
[2019-05-20] MEDS: magnesium 4gm in 100ml NS 100 ML IV PRN (09:11)
[2019-05-20] MEDS: ondansetron/PF 4mg/2ml inj IV PRN (09:11)
[2019-05-20 11:00] VITALS: BP 117/60
[2019-05-20 15:00] VITALS: BP 120/69
[2019-05-20 18:00] VITALS: BP 103/53
--- NOTE | 2019-05-20 18:14 | NUR ---
Noted patient's HR went into A-fib 130's, gave metoprolol and amiodarone po now. BP 103/53 (70).
[2019-05-20] MEDS ORDERED: amiodarone 150mg/dext, iso-os 100 ML IV ONE (18:25)
--- NOTE | 2019-05-20 18:45 | NUR ---
Problems reprioritized. Patient report given, questions answered & plan of care reviewed with Valarie KUMAR.
--- NOTE | 2019-05-20 18:45 | NUR ---
Patient in room MED 316. I have received report from FABIAN KUMAR and had the opportunity to ask questions and assume patient care.
[2019-05-20 22:00] VITALS: BP 128/68
[2019-05-21] MEDS: acetaminophen 325mg tablet PO PRN ×3 (00:05→20:38)
[2019-05-21 02:00] VITALS: BP 114/59
[2019-05-21] MEDS: metoprolol tartrate 12.5mg (1/2 tablet) PO SCH ×2 (05:51→19:24)
[2019-05-21 06:00] VITALS: BP 140/78
--- NOTE | 2019-05-21 06:06 | NUR ---
Problems reprioritized. Patient report given, questions answered & plan of care reviewed with Cathy KUMAR.
[2019-05-21 06:22] LABS: ANION GAP 9 (8-16); BLOOD UREA NITROGEN 17 MG/DL (7-18); CALCIUM 8.6 MG/DL (8.5-10.1); CHLORIDE 103 MMOL/L (99-107); CREATININE 1.06 MG/DL (0.60-1.10); GLUCOSE 93 MG/DL (70-104); POTASSIUM 4.4 MMOL/L (3.5-5.1); SODIUM 136 MMOL/L (135-145); TOTAL CARBON DIOXIDE 24.4 MMOL/L (24-32); eGFR 70 ML/MIN
--- NOTE | 2019-05-21 06:28 | NUR ---
Called Leonardo Harman and left a voicemail informing him that pt went into A-fib last night and was converted with a bolus of amiodarone and that pt has been sinus all night besides 45 mins ago going into A-fib again.
[2019-05-21] MEDS ORDERED: amiodarone 150mg/dext, iso-os 100 ML IV ONE (06:45)
--- NOTE | 2019-05-21 06:45 | NUR ---
PATIENT IN AFIB 130S. CALLED KARINA ZHU, ORDERS FOR AMIO BOLUS.
[2019-05-21] MEDS: sennosides/docusate sodium tablet PO SCH ×2 (07:45→19:24)
[2019-05-21] MEDS: aspirin 81mg tab.chew PO SCH (07:45)
[2019-05-21] MEDS: amiodarone 200mg tablet PO SCH ×3 (07:45→20:38)
[2019-05-21] MEDS: atorvastatin 10mg tablet PO SCH (07:45)
[2019-05-21] MEDS: multivitamins, therapeutics tablet PO SCH (07:45)
[2019-05-21] MEDS: magnesium Cl slow-release 64mg tablet PO SCH ×2 (07:45→20:00)
[2019-05-21] MEDS: pantoprazole 40mg Tablet.DR PO SCH (07:45)
[2019-05-21] MEDS: tamsulosin 0.4mg capsule PO SCH (07:45)
[2019-05-21] MEDS ORDERED: furosemide 40mg/4ml inj ONE (08:26)
[2019-05-21 08:34] LABS: MAGNESIUM 2.1 MG/DL (1.5-2.4)
[2019-05-21] MEDS: furosemide 40mg/4ml inj IV SCH ×2 (08:41→19:20)
[2019-05-21 08:55] LABS: BASOPHILS # (AUTO) 0.2 X10'3 (0-0.2); BASOPHILS % (AUTO) 1.1 % (0-1); EOSINOPHILS # (AUTO) 0.4 X10'3 (0-0.9); EOSINOPHILS % (AUTO) 2.9 % (0-6); HEMATOCRIT 35.1 % (42.0-52.0); HEMOGLOBIN 12.3 g/dl (14.0-17.9); LYMPHOCYTES # (AUTO) 2.9 X10'3 (1.1-4.8); LYMPHOCYTES % (AUTO) 20.6 % (21-51); MEAN CORPUSCULAR HEMOGLOBIN 32.7 PG (27.0-31.0); MEAN CORPUSCULAR VOLUME 93.4 FL (78-98); MEAN PLATELET VOLUME 9.1 FL (7.4-10.4); MONOCYTES # (AUTO) 1.6 X10'3 (0-0.9); MONOCYTES % (AUTO) 11.8 % (2-12); NEUTROPHILS # (AUTO) 8.9 X10'3 (1.8-7.7); NEUTROPHILS % (AUTO) 63.6 % (42-75); PLATELET COUNT 240 X10'3 (140-440); RED BLOOD COUNT 3.75 X10'6 (4.70-6.10); RED CELL DISTRIBUTION WIDTH 13.8 % (11.5-14.5); WHITE BLOOD COUNT 13.9 X10'3 (4.5-11.0)
--- NOTE | 2019-05-21 09:00 | NUR ---
OFFERED PATIENT A WALK AROUND THE UNIT, PATIENT REFUSING
[2019-05-21 11:00] VITALS: BP 107/49
--- NOTE | 2019-05-21 12:00 | NUR ---
OFFERED PATIENT A WALK BEFORE LUNCH, PATIENT REFUSING ATTEMPTED TO ENCOURAGE AND EDUCATE THAT WALKING IS IMPORTANT FOR HEALING, PATIENT SAYS HE DOESN'T WANT TO RIGHT NOW. WILL TRY AGAIN LATER.
[2019-05-21 15:00] VITALS: BP 125/61
[2019-05-21 18:00] VITALS: BP 106/64
--- NOTE | 2019-05-21 18:00 | NUR ---
Patient in room MED 316. I have received report from Cathy KUMAR and had the opportunity to ask questions and assume patient care.
[2019-05-21] MEDS: ondansetron/PF 4mg/2ml inj IV PRN (19:20)
[2019-05-21] MEDS ORDERED: furosemide 40mg/4ml inj IV SCH (20:00)
[2019-05-21 22:00] VITALS: BP 111/63
[2019-05-22 02:00] VITALS: BP 90/72
[2019-05-22] MEDS: acetaminophen 325mg tablet PO PRN (02:45)
[2019-05-22 04:51] LABS: BASOPHILS # (AUTO) 0.1 X10'3 (0-0.2); BASOPHILS % (AUTO) 0.6 % (0-1); EOSINOPHILS # (AUTO) 0.4 X10'3 (0-0.9); EOSINOPHILS % (AUTO) 2.6 % (0-6); HEMATOCRIT 38.3 % (42.0-52.0); HEMOGLOBIN 12.9 g/dl (14.0-17.9); LYMPHOCYTES # (AUTO) 2.7 X10'3 (1.1-4.8); LYMPHOCYTES % (AUTO) 18.8 % (21-51); MEAN CORPUSCULAR HEMOGLOBIN 31.5 PG (27.0-31.0); MEAN CORPUSCULAR HGB CONC 33.6 g/dL (33.0-36.5); MEAN CORPUSCULAR VOLUME 93.8 FL (78-98); MEAN PLATELET VOLUME 8.3 FL (7.4-10.4); MONOCYTES # (AUTO) 1.7 X10'3 (0-0.9); MONOCYTES % (AUTO) 11.8 % (2-12); NEUTROPHILS # (AUTO) 9.5 X10'3 (1.8-7.7); NEUTROPHILS % (AUTO) 66.2 % (42-75); PLATELET COUNT 297 X10'3 (140-440); RED BLOOD COUNT 4.09 X10'6 (4.70-6.10); RED CELL DISTRIBUTION WIDTH 13.2 % (11.5-14.5); WHITE BLOOD COUNT 14.4 X10'3 (4.5-11.0)
--- NOTE | 2019-05-22 05:00 | NUR ---
Called Leonardo Hauser and left a voicemail stating that pt went back into A-Fib around 299
[2019-05-22 05:02] LABS: ALBUMIN 3.2 G/DL (3.4-5.0); ANION GAP 11 (8-16); BLOOD UREA NITROGEN 22 MG/DL (7-18); BUN/CREATININE RATIO 19.1 (5.4-32.0); CALCIUM 8.7 MG/DL (8.5-10.1); CHLORIDE 102 MMOL/L (99-107); CREATININE 1.15 MG/DL (0.60-1.10); GLUCOSE 113 MG/DL (70-104); POTASSIUM 4.2 MMOL/L (3.5-5.1); SODIUM 137 MMOL/L (135-145); eGFR 64 ML/MIN
--- NOTE | 2019-05-22 05:08 | NUR ---
PT CONVERTED BACK INTO A-FIB FROM SR AND HAS STAYED IN IT, WILL CONTINUE TO MONITOR
[2019-05-22 06:00] VITALS: BP 114/76
--- NOTE | 2019-05-22 06:00 | NUR ---
Problems reprioritized. Patient report given, questions answered & plan of care reviewed with Shirley KUMAR.
--- NOTE | 2019-05-22 06:00 | NUR ---
Patient in room MED 316. I have received report from JOSÉ Mae and had the opportunity to ask questions and assume patient care.
[2019-05-22 06:47] LABS: MAGNESIUM 2.1 MG/DL (1.5-2.4)
[2019-05-22] MEDS: aspirin 81mg tab.chew PO SCH (07:42)
[2019-05-22] MEDS: multivitamins, therapeutics tablet PO SCH (07:42)
[2019-05-22] MEDS: pantoprazole 40mg Tablet.DR PO SCH (07:42)
[2019-05-22] MEDS: tamsulosin 0.4mg capsule PO SCH (07:43)
[2019-05-22] MEDS: amiodarone 200mg tablet PO SCH ×3 (07:43→20:43)
[2019-05-22] MEDS: magnesium Cl slow-release 64mg tablet PO SCH ×2 (07:44→20:00)
[2019-05-22] MEDS ORDERED: metoprolol tartrate 12.5mg (1/2 tablet) PO SCH (08:00)
[2019-05-22] MEDS ORDERED: atorvastatin 20mg tablet PO SCH (08:00)
[2019-05-22] MEDS: sennosides/docusate sodium tablet PO SCH ×2 (08:02→20:43)
[2019-05-22] MEDS: metoprolol tartrate 25mg tablet PO SCH ×2 (08:03→20:46)
[2019-05-22] MEDS: metoclopramide 5 mg/ml inj IV PRN ×2 (08:04→18:44)
[2019-05-22 11:00] VITALS: BP 106/65
[2019-05-22 11:28] LABS: CLARITY,URINE CLEAR (Clear); COLOR,URINE YELLOW (Yellow); GLUCOSE, URINE NEGATIVE (Neg); KETONES,URINE NEGATIVE (Neg); LEUKOCYTE ESTERASE ,URINE NEGATIVE (Neg); NITRITES, URINE NEGATIVE (Neg); OCCULT BLOOD,URINE NEGATIVE (Neg); PROTEIN,URINE NEGATIVE (Neg); UROBILINOGEN,URINE 0.2 E.U/dL (0.2-1.0)
[2019-05-22 11:48] LABS: UA COLLECTION TYPE CLN CATCH MIDSTREAM
[2019-05-22 11:55] LABS: MUCUS STRANDS MANY /LPF (Neg); WBC,URINE 0-4 /HPF (0-4)
[2019-05-22 11:56] LABS: HYALINE CASTS 0-3 /LPF (NEGATIVE)
[2019-05-22 11:57] LABS: SQUAMOUS EPITHELIAL CELL,UR FEW /LPF (FEW)
[2019-05-22 11:58] LABS: BACTERIA,URINE NONE SEEN /HPF (Neg); RBC,URINE 0-2 /HPF (0-2)
--- NOTE | 2019-05-22 12:24 | NUR ---
reassessment: Pt PO 75-100% meals w/ protein food preferences meeting needs. LBM 05/21. No nutrition concerns at this time. Will continue to monitor. Recommend: 1. continue heart healthy, carb controlled diet 2. continue routine bowel care 3. Cottage QD with lunch; [place] yogurt QD with dinner 4. weight per rx Addendum: 05/22/19 at [address] Amended: Links added.
[2019-05-22] MEDS: ondansetron 4mg rapidly disintigrating tab PO PRN ×2 (15:11→20:48)
[2019-05-22 17:00] VITALS: BP 112/71
--- NOTE | 2019-05-22 18:00 | NUR ---
Problems reprioritized. Patient report given, questions answered & plan of care reviewed with JOSÉ Urban.
[2019-05-22 18:30] VITALS: BP 114/64
--- NOTE | 2019-05-22 18:30 | NUR ---
Patient in room MED 316. I have received report from Shirley Andujar and had the opportunity to ask questions and assume patient care. bedside report completed, pt resting quietly.
[2019-05-22] MEDS: atorvastatin 20mg tablet PO SCH (20:43)
[2019-05-22 22:00] VITALS: BP 112/64
[2019-05-23] MEDS: acetaminophen 325mg tablet PO PRN ×2 (00:36→19:47)
[2019-05-23 02:00] VITALS: BP 112/64
[2019-05-23 06:00] VITALS: BP 120/59
[2019-05-23 06:09] LABS: BASOPHILS # (AUTO) 0.2 X10'3 (0-0.2); BASOPHILS % (AUTO) 1.3 % (0-1); EOSINOPHILS # (AUTO) 0.4 X10'3 (0-0.9); EOSINOPHILS % (AUTO) 2.9 % (0-6); HEMOGLOBIN 12.2 g/dl (14.0-17.9); LYMPHOCYTES # (AUTO) 3.5 X10'3 (1.1-4.8); LYMPHOCYTES % (AUTO) 23.7 % (21-51); MEAN CORPUSCULAR HGB CONC 34.7 g/dL (33.0-36.5); MEAN CORPUSCULAR VOLUME 92.1 FL (78-98); MONOCYTES # (AUTO) 1.9 X10'3 (0-0.9); MONOCYTES % (AUTO) 13.2 % (2-12); NEUTROPHILS # (AUTO) 8.6 X10'3 (1.8-7.7); NEUTROPHILS % (AUTO) 58.9 % (42-75); PLATELET COUNT 335 X10'3 (140-440); RED CELL DISTRIBUTION WIDTH 13.5 % (11.5-14.5); WHITE BLOOD COUNT 14.5 X10'3 (4.5-11.0)
--- NOTE | 2019-05-23 06:10 | NUR ---
Patient in room MED 316. I have received report from JOSÉ Yang and had the opportunity to ask questions and assume patient care. Addendum: 05/23/19 at 0639 by Marta Hernandez RN JOSÉ Serna gave report not JOSÉ Yang.
--- NOTE | 2019-05-23 06:10 | NUR ---
Patient in room MED 313. I have received report from JOSÉ Urban and had the opportunity to ask questions and assume patient care.
--- NOTE | 2019-05-23 06:15 | NUR ---
Patient left the floor with JOSÉ Mendenhall from the labeling strategist. He left via w/c. Noted drips running, Tridil at 10mcg/min, Aggrestat, Heparin at 1200 units/hr and NS at 75 mL/hr. Patient was ambulatory to the wheelchair. He is scheduled for a heart cath this morning. Will await his arrival back to the [facility] unit. Addendum: 05/23/19 at 0638 by Marta Hernandez RN Wrong patient.
--- NOTE | 2019-05-23 06:40 | NUR ---
Problems reprioritized. Patient report given, questions answered & plan of care reviewed with Rossana KUMAR.
[2019-05-23 06:56] LABS: ALBUMIN 3.1 G/DL (3.4-5.0); ANION GAP 10 (8-16); BLOOD UREA NITROGEN 18 MG/DL (7-18); BUN/CREATININE RATIO 15.4 (5.4-32.0); CALCIUM 8.5 MG/DL (8.5-10.1); CHLORIDE 102 MMOL/L (99-107); CREATININE 1.17 MG/DL (0.60-1.10); GLUCOSE 92 MG/DL (70-104); POTASSIUM 4.6 MMOL/L (3.5-5.1); SODIUM 137 MMOL/L (135-145); TOTAL CARBON DIOXIDE 25.5 MMOL/L (24-32); eGFR 63 ML/MIN
[2019-05-23] MEDS: aspirin 81mg tab.chew PO SCH (08:21)
[2019-05-23] MEDS: amiodarone 200mg tablet PO SCH ×3 (08:21→21:23)
[2019-05-23] MEDS: magnesium Cl slow-release 64mg tablet PO SCH ×2 (08:21→20:00)
[2019-05-23] MEDS: tamsulosin 0.4mg capsule PO SCH (08:21)
[2019-05-23] MEDS: sennosides/docusate sodium tablet PO SCH ×2 (08:21→19:46)
[2019-05-23] MEDS: pantoprazole 40mg Tablet.DR PO SCH (08:21)
[2019-05-23] MEDS: metoprolol tartrate 25mg tablet PO SCH ×2 (08:21→19:48)
[2019-05-23] MEDS: multivitamins, therapeutics tablet PO SCH (08:21)
[2019-05-23] MEDS: metoclopramide 10mg tablet PO SCH ×4 (08:50→21:24)
[2019-05-23 11:00] VITALS: BP 110/63
[2019-05-23 15:00] VITALS: BP 110/61
--- NOTE | 2019-05-23 17:55 | NUR ---
Problems reprioritized. Patient report given, questions answered & plan of care reviewed with JOSÉ Silveira
[2019-05-23 18:00] VITALS: BP 105/62
--- NOTE | 2019-05-23 18:27 | NUR ---
Orienteer documentation: I have reviewed and agree with all interventions, assessments performed and documented by SANDY Tracy. Orienteer Medication Administration: For this medication-pass time frame, medication were reviewed, dispensed, administered and documented per hospital policy by Lena Tracy RN.
[2019-05-23] MEDS: apixaban 5mg tablet PO SCH (19:46)
[2019-05-23] MEDS: atorvastatin 20mg tablet PO SCH (21:24)
[2019-05-23 22:00] VITALS: BP 126/67
[2019-05-24 05:39] LABS: BASOPHILS # (AUTO) 0.1 X10'3 (0-0.2); BASOPHILS % (AUTO) 0.8 % (0-1); EOSINOPHILS # (AUTO) 0.4 X10'3 (0-0.9); EOSINOPHILS % (AUTO) 3.3 % (0-6); HEMATOCRIT 34.4 % (42.0-52.0); HEMOGLOBIN 11.9 g/dl (14.0-17.9); LYMPHOCYTES # (AUTO) 2.7 X10'3 (1.1-4.8); LYMPHOCYTES % (AUTO) 23.1 % (21-51); MEAN CORPUSCULAR HEMOGLOBIN 31.9 PG (27.0-31.0); MEAN CORPUSCULAR HGB CONC 34.8 g/dL (33.0-36.5); MEAN CORPUSCULAR VOLUME 91.7 FL (78-98); MEAN PLATELET VOLUME 7.7 FL (7.4-10.4); MONOCYTES # (AUTO) 1.4 X10'3 (0-0.9); MONOCYTES % (AUTO) 12.1 % (2-12); NEUTROPHILS # (AUTO) 7.1 X10'3 (1.8-7.7); NEUTROPHILS % (AUTO) 60.7 % (42-75); PLATELET COUNT 358 X10'3 (140-440); RED BLOOD COUNT 3.75 X10'6 (4.70-6.10); RED CELL DISTRIBUTION WIDTH 13.4 % (11.5-14.5); WHITE BLOOD COUNT 11.7 X10'3 (4.5-11.0)
[2019-05-24 05:55] LABS: ALBUMIN 3.1 G/DL (3.4-5.0); ANION GAP 7 (8-16); BLOOD UREA NITROGEN 18 MG/DL (7-18); BUN/CREATININE RATIO 15.7 (5.4-32.0); CALCIUM 8.6 MG/DL (8.5-10.1); CHLORIDE 104 MMOL/L (99-107); CREATININE 1.15 MG/DL (0.60-1.10); GLUCOSE 96 MG/DL (70-104); POTASSIUM 4.5 MMOL/L (3.5-5.1); SODIUM 138 MMOL/L (135-145); TOTAL CARBON DIOXIDE 26.8 MMOL/L (24-32); eGFR 64 ML/MIN
--- NOTE | 2019-05-24 06:15 | NUR ---
Patient in room MED 316. I have received report from Trey KUMAR and Qing KUMAR and had the opportunity to ask questions and assume patient care.
[2019-05-24 06:30] VITALS: BP 142/79
--- NOTE | 2019-05-24 06:32 | NUR ---
Problems reprioritized. Patient report given, questions answered & plan of care reviewed with Makenzie KUMAR.
--- NOTE | 2019-05-24 06:36 | NUR ---
Orientee documentation: I have reviewed and agree with all interventions, assessments performed and documented by Qing KUMAR .
--- NOTE | 2019-05-24 06:36 | NUR ---
Problems reprioritized. Patient report given, questions answered & plan of care reviewed with Makenzie KUMAR.
[2019-05-24] MEDS ORDERED: APIX5TAB3 PO (07:16)
[2019-05-24] MEDS ORDERED: HYDR-4353 PO (07:16)
[2019-05-24] MEDS ORDERED: METO25TA6 PO (07:16)
[2019-05-24] MEDS ORDERED: AMIO200T61 PO (07:16)
[2019-05-24] MEDS ORDERED: METO10TA3 PO (07:16)
[2019-05-24] MEDS ORDERED: SENN-166 PO (07:16)
[2019-05-24] MEDS: tamsulosin 0.4mg capsule PO SCH (07:58)
[2019-05-24] MEDS: magnesium Cl slow-release 64mg tablet PO SCH ×2 (07:58→20:32)
[2019-05-24] MEDS: metoclopramide 10mg tablet PO SCH ×4 (07:58→20:33)
[2019-05-24] MEDS: pantoprazole 40mg Tablet.DR PO SCH (07:58)
[2019-05-24] MEDS: aspirin 81mg tab.chew PO SCH (07:58)
[2019-05-24] MEDS: sennosides/docusate sodium tablet PO SCH ×2 (07:58→20:30)
[2019-05-24] MEDS: amiodarone 200mg tablet PO SCH ×3 (07:58→20:30)
[2019-05-24] MEDS: apixaban 5mg tablet PO SCH ×2 (07:58→20:30)
[2019-05-24] MEDS: multivitamins, therapeutics tablet PO SCH (07:58)
[2019-05-24] MEDS: metoprolol tartrate 25mg tablet PO SCH ×2 (08:00→20:32)
[2019-05-24 11:00] VITALS: BP 117/58
[2019-05-24] MEDS: magnesium 4gm in 100ml NS 100 ML IV PRN (11:22)
[2019-05-24 15:00] VITALS: BP 122/70
[2019-05-24 18:00] VITALS: BP 125/62
--- NOTE | 2019-05-24 18:25 | NUR ---
Problems reprioritized. Patient report given, questions answered & plan of care reviewed with Trey RN and Qing KUMAR.
--- NOTE | 2019-05-24 18:25 | NUR ---
received pt report from Makenzie KUMAR
[2019-05-24] MEDS: atorvastatin 20mg tablet PO SCH (20:33)
[2019-05-24] MEDS: acetaminophen 325mg tablet PO PRN (20:33)
[2019-05-24 22:00] VITALS: BP 111/59
[2019-05-25] MEDS: acetaminophen 325mg tablet PO PRN (03:10)
[2019-05-25 03:12] LABS: BASOPHILS # (AUTO) 0.1 X10'3 (0-0.2); BASOPHILS % (AUTO) 0.7 % (0-1); EOSINOPHILS # (AUTO) 0.4 X10'3 (0-0.9); EOSINOPHILS % (AUTO) 2.9 % (0-6); HEMATOCRIT 36.5 % (42.0-52.0); HEMOGLOBIN 12.3 g/dl (14.0-17.9); LYMPHOCYTES # (AUTO) 2.4 X10'3 (1.1-4.8); LYMPHOCYTES % (AUTO) 19.9 % (21-51); MEAN CORPUSCULAR HEMOGLOBIN 31.8 PG (27.0-31.0); MEAN CORPUSCULAR HGB CONC 33.8 g/dL (33.0-36.5); MEAN CORPUSCULAR VOLUME 93.8 FL (78-98); MONOCYTES # (AUTO) 1.4 X10'3 (0-0.9); MONOCYTES % (AUTO) 11.3 % (2-12); NEUTROPHILS # (AUTO) 7.8 X10'3 (1.8-7.7); NEUTROPHILS % (AUTO) 65.2 % (42-75); PLATELET COUNT 411 X10'3 (140-440); RED BLOOD COUNT 3.89 X10'6 (4.70-6.10); RED CELL DISTRIBUTION WIDTH 13.4 % (11.5-14.5)
[2019-05-25 06:00] VITALS: BP 123/69
--- NOTE | 2019-05-25 06:00 | NUR ---
Patient in room MED 316. I have received report from JOSÉ Yang and had the opportunity to ask questions and assume patient care.
[2019-05-25 06:07] LABS: MAGNESIUM 2.4 MG/DL (1.5-2.4); POTASSIUM 4.1 MMOL/L (3.5-5.1)
--- NOTE | 2019-05-25 06:31 | NUR ---
Problems reprioritized. Patient report given, questions answered & plan of care reviewed with Shirley KUMAR.
--- NOTE | 2019-05-25 06:36 | NUR ---
Problems reprioritized. Patient report given, questions answered & plan of care reviewed with Shirley KUMAR.
--- NOTE | 2019-05-25 06:36 | NUR ---
Orientee documentation: I have reviewed and agree with interventions, assessments performed and documented by Qing Andujar .
--- NOTE | 2019-05-25 06:37 | NUR ---
Orientation Medication Administration: For this medication-pass time frame medication were reviewed, dispensed, administered and documented per hospital policy by Qing Andujar .
[2019-05-25] MEDS: pantoprazole 40mg Tablet.DR PO SCH (07:25)
[2019-05-25] MEDS: metoclopramide 10mg tablet PO SCH (07:26)
[2019-05-25] MEDS: aspirin 81mg tab.chew PO SCH (09:06)
[2019-05-25] MEDS: amiodarone 200mg tablet PO SCH (09:06)
[2019-05-25] MEDS: apixaban 5mg tablet PO SCH (09:06)
[2019-05-25] MEDS: tamsulosin 0.4mg capsule PO SCH (09:07)
[2019-05-25] MEDS: sennosides/docusate sodium tablet PO SCH (09:07)
[2019-05-25] MEDS: magnesium Cl slow-release 64mg tablet PO SCH (09:07)
[2019-05-25] MEDS: multivitamins, therapeutics tablet PO SCH (09:07)
[2019-05-25 09:09] VITALS: BP_SYST 118
[2019-05-25] MEDS: metoprolol tartrate 25mg tablet PO SCH (09:09)
--- NOTE | 2019-05-25 11:20 | NUR ---
RN provided D/C teachings on CABG, post CABG care, ACS, and A Fib, as well as medication teachings. All questions answered. Pt left unit in wheelchair with all personal belongings, picked up by family friend. Pt is not in any distress, and he understands he needs to follow up with Dr. Vargas in 2 weeks, PCP in 6 weeks, and he made an appointment with Dr. Conti on 06/11.
== END 2019-05-25 11:20 | disposition home or self-care (01) | DRG 233 ==
LOC: SSTAY O 05:04 → MED 3N 09:03 → CICU 2S 05-15 10:24 → MED 3N 05-17 14:46
PROVIDERS: ADMIT Internal Medicine Interventional Cardiology; ATTEND Thoracic Surgery (Cardiothoracic Vascular Surgery)
PROC: 4A023N7 Measurement of Cardiac Sampling and Pressure, Left Heart, Percutaneous Approach (ICD-10-PCS; principal; 2019-05-13)
PROC: B2111ZZ Fluoroscopy of Multiple Coronary Arteries using Low Osmolar Contrast (ICD-10-PCS; 2019-05-13)
PROC: B2151ZZ Fluoroscopy of Left Heart using Low Osmolar Contrast (ICD-10-PCS; 2019-05-13)
PROC: 02100Z9 Bypass Coronary Artery, One Artery from Left Internal Mammary, Open Approach (ICD-10-PCS; 2019-05-15)
PROC: 021109W Bypass Coronary Artery, Two Arteries from Aorta with Autologous Venous Tissue, Open Approach (ICD-10-PCS; 2019-05-15)
PROC: 06BP4ZZ Excision of Right Saphenous Vein, Percutaneous Endoscopic Approach (ICD-10-PCS; 2019-05-15)
PROC: 02HV33Z Insertion of Infusion Device into Superior Vena Cava, Percutaneous Approach (ICD-10-PCS; 2019-05-15)
PROC: 02HP32Z Insertion of Monitoring Device into Pulmonary Trunk, Percutaneous Approach (ICD-10-PCS; 2019-05-15)
PROC: 4A133B3 Monitoring of Arterial Pressure, Pulmonary, Percutaneous Approach (ICD-10-PCS; 2019-05-15)
PROC: 4A1239Z Monitoring of Cardiac Output, Percutaneous Approach (ICD-10-PCS; 2019-05-15)
PROC: 5A1221Z Performance of Cardiac Output, Continuous (ICD-10-PCS; 2019-05-15)
PROC: B24BZZ4 Ultrasonography of Heart with Aorta, Transesophageal (ICD-10-PCS; 2019-05-15)
DX: T82.855A Stenosis of coronary artery stent, initial encounter (principal); I49.01 Ventricular fibrillation; I25.119 Atherosclerotic heart disease of native coronary artery with unspecified angina pectoris; R94.30 Abnormal result of cardiovascular function study, unspecified; D72.829 Elevated white blood cell count, unspecified; E11.9 Type 2 diabetes mellitus without complications; E78.5 Hyperlipidemia, unspecified; I48.0 Paroxysmal atrial fibrillation; G89.29 Other chronic pain; I10 Essential (primary) hypertension; M54.9 Dorsalgia, unspecified; R94.39 Abnormal result of other cardiovascular function study; K59.00 Constipation, unspecified; N40.0 Benign prostatic hyperplasia without lower urinary tract symptoms; Y83.1 Surgical operation with implant of artificial internal device as the cause of abnormal reaction of the patient, or of later complication, without mention of misadventure at the time of the procedure; Z82.49 Family history of ischemic heart disease and other diseases of the circulatory system; Z87.891 Personal history of nicotine dependence; Z98.61 Coronary angioplasty status; Z88.5 Allergy status to narcotic agent; Y92.89 Other specified places as the place of occurrence of the external cause
CPT/HCPCS: 0232T; 93312; 93325; 93458; 36415; 36600; 71045; 71046; 74022; 76700; 80048; 80053; 80061; 81001; 82330; 82435; 82803; 82947; 82948; 83036; 83605; 83735; 84100; 84132; 84145; 84295; 85018; 85025; 85027; 85347; 85384; 85610; 85730; 86885; 86900; 86901; 86920; 87040; 87081; 93005; 93880; 93971; 94002; 94010; 94668; 94760; 97110; 97116; 97161; 97530; 99152; A4618; A4620; A6258; A6402; A6449; A7000; A7048; C1713; C1751; C1769; C1894; C9113; G0378; GO378; J0171; J0282; J0690; J1170; J1644; J1815; J1885; J1940; J2001; J2060; J2150; J2250; J2270; J2370; J2405; J2440; J2704; J2765; J2795; J2930; J3010; J3370; J3475; J3480; J3490; J7030; J7040; J7050; J7060; J7120; J8597; P9045; P9047; Q0163; Q9967